=== PATIENT | male | born 1940 | race Caucasian/White ===

== ENCOUNTER 2024-07-14 10:11 | Day surgery (SDC) | payer MEDICARE, BC ==
[2024-07-14] VITALS (12 sets, daily range): BP systolic 109–128; BP diastolic 52–70; PULSE 81–96; RESP 14–22; TEMP 98.6; O2SAT 98–100
[~2024-07-14] VITALS: Ht 177.8 cm; Wt 73.3 kg
[~2024-07-14 10:11] MED LIST: ALBU8HFA INH; APIX5TAB3 PO; BUDE10.26 INH; DIGO125T PO; DOCU-337 PO; FLUT16SP26 BOTHNARES; LORA10CA PO; LOVA20TA2 PO; METO-395 PO; MULT-1249 PO; NITR0.4T51 SL; ONDA-103 PO; PANT-47 PO
[2024-07-14] MEDS ORDERED: MIDAZolam 1mg/ml 10ml vial IV ONE (10:50)
[2024-07-14] MEDS ORDERED: fentaNYL/PF 50MCG/1 ML 2ML syringe IV ONE (10:50)
[2024-07-14 11:26] LABS: BASOPHILS % (AUTO) 0.6 % (0-1); EOSINOPHILS % (AUTO) 0.9 % (0-6); HEMATOCRIT 37.6 % (42.0-52.0); HEMOGLOBIN 12.7 g/dl (14.0-17.9); LYMPHOCYTES # (AUTO) 0.9 X10'3 (1.1-4.8); LYMPHOCYTES % (AUTO) 16.8 % (21-51); MEAN CORPUSCULAR HEMOGLOBIN 30.2 PG (27.0-31.0); MEAN CORPUSCULAR HGB CONC 33.7 g/dL (33.0-36.5); MEAN CORPUSCULAR VOLUME 89.5 FL (78-98); MEAN PLATELET VOLUME 7.6 FL (7.4-10.4); MONOCYTES # (AUTO) 0.7 X10'3 (0-0.9); MONOCYTES % (AUTO) 12.8 % (2-12); NEUTROPHILS # (AUTO) 3.5 X10'3 (1.8-7.7); NEUTROPHILS % (AUTO) 68.9 % (42-75); PLATELET COUNT 168 X10'3 (140-440); RED BLOOD COUNT 4.21 X10'6 (4.70-6.10); RED CELL DISTRIBUTION WIDTH 27.7 % (11.5-14.5); WHITE BLOOD COUNT 5.1 X10'3 (4.5-11.0)
[2024-07-14 11:36] LABS: ALBUMIN 3.3 G/DL (3.4-5.0); ANION GAP 7 (8-16); BLOOD UREA NITROGEN 10 MG/DL (7-18); BUN/CREATININE RATIO 9.9 (10.0-20.0); CALCIUM 9.5 MG/DL (8.5-10.1); CHLORIDE 106 MMOL/L (99-107); CREATININE 1.01 MG/DL (0.60-1.10); GLUCOSE 107 MG/DL (70-104); POTASSIUM 4.1 MMOL/L (3.5-5.1); SODIUM 139 MMOL/L (135-145); TOTAL CARBON DIOXIDE 26.4 MMOL/L (24-32); eCRCL 55 ML/MIN; eGFR 70 ML/MIN
[2024-07-14 11:40] LABS: APTT 32 SECONDS (22-32); INR 1.2 INR; PROTHROMBIN TIME 12.2 SECONDS (9.0-12.0)
[2024-07-14] MEDS ORDERED: FERR28TA PO (12:19)
[2024-07-14] MEDS ORDERED: CEPH250C PO (12:19)
[2024-07-14] MEDS ORDERED: [UNRECOGNIZED DRUG - CODE] PO (12:19)
--- NOTE | 2024-07-14 17:53 | CARDIOLOGY REPORT ---
APPROVED REPORT EXAM: Focused, limited transesophageal echocardiogram with color flow Doppler. Patient Location: OUT-PATIENT Blood Pressure: 128 / 68 mmHg Heart Rate: 96-102 bpm Rhythm: ATRIAL FIBRILLATION Indications POST WATCHMAN FLX CHEMA CLOSURE DEVICE IMPLANTATION FOLLOW UP EVALUATE DEVICE FOR THROMBUS, POSITION, AND SEAL 27mm WATCHMAN FLX CHEMA CLOSURE DEVICE SILVANA PROBE PASSED BY: MD ALEXIS Con[employer] Rod Buster: Angelita Blank MD Previous echo: 05/29/24 [facility] EF: 63%; nlLV; sevLAE; smLtoR; Sarai; mMR; modTR; noPE LEFT VENTRICLE Normal LV size and wall thickness. Overall systolic function is normal. LVEF is 65%. ATRIA LA is severely dilated. 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 L eft upper pulmonary vein identified. Successfully occluded left atrial appendage with well visualized Watchman device well positioned without thrombus. No residual flow detected around device in all vie ws. PERICARDIUM Normal pericardium. No effusion. CONCLUSION Normal LV size and wall thickness. Overall systolic function is normal. LVEF is 65%. LA is severely d ilated. 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 Left upper pulmon daisy vein identified. Successfully occluded left atrial appendage with well visualized Watchman device well positioned without thrombus. No residual flow detected around device in all views. Normal peric ardium. No effusion. Conclusion Normal LV size and wall thickness. Overall systolic function is normal. LVEF is 65%. LA is severely dilated. 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 Left upper pulmonary vein identified. Successfully occluded left atrial appendage with well visuali zed Watchman device well positioned without thrombus. No residual flow detected around device in all views. Normal pericardium. No effusion.
[2024-07-16] MEDS ORDERED: ASPI-611 PO (13:28)
[2024-07-16] MEDS ORDERED: CLOP75TA33 PO (13:28)
== END 2024-07-14 12:45 | disposition home or self-care (01) ==
LOC: SSTAY O 10:11
PROVIDERS: ATTEND Student in an Organized Health Care Education/Training Program
DX: I48.91 Unspecified atrial fibrillation (principal); I25.10 Atherosclerotic heart disease of native coronary artery without angina pectoris; I73.9 Peripheral vascular disease, unspecified; I10 Essential (primary) hypertension
CPT/HCPCS: 80048; 85025; 85610; 85730; 93312; 93325; 94760; A4620; J7030